=== PATIENT | male | born 1955 | race Caucasian/White ===

== ENCOUNTER 2018-10-27 14:47 | Inpatient (IN) | payer OTHER ==
[~2018-10-27] VITALS: Ht 167.6 cm; Wt 63.5 kg
[2018-10-27 14:57] VITALS: Ht 167.6 cm; Wt 63.5 kg
--- NOTE | 2018-10-27 15:09 | NUR ---
RECEIVED PT FROM [facility]. PT PLACED TO BED 3 - PER [facility] PT VERBALIZED TO RICHARD IN [place] THAT HE WANTS TO JUMP OFF A BRIDGE AND NO LONGER WANTS TO LIVE. PT BULGARIAN IS LIMITED. WHEN I ASKED HIM IF HE WANTS TO KILL HIMSELF, PT REPLIED IN LIMITED BULGARIAN STATING "I HAVE TWO SON AND A DAUGHTER. THEY DON'T WANT TO SEE ME." MSE BEING COMPLETED BY DR PEARSON AT THIS TIME WHO IS AWARE OF PT'S SUICIDAL THOUGHTS THAT RICHARD IS AWARE OF
--- NOTE | 2018-10-27 15:09 | NUR ---
DR PEARSON AT BEDSIDE
--- NOTE | 2018-10-27 15:12 | NUR ---
ALL PERSONAL BELONGINGS REMOVED FROM PT AND PLACED TO RADIO ROOM
--- NOTE | 2018-10-27 15:25 | NUR ---
PT ATTEMPTING TO URINATE TO URINAL AT THIS TIME
[2018-10-27 15:32] LABS: BASOPHIL % 0.3 % (0-2); PLATELET COUNT 201 x10^3mcL (130-400); RED CELL DISTRIBUTION WIDTH 13.8 % (11.5-14.5)
[2018-10-27 15:44] LABS: ALKALINE PHOSPHATASE 184 U/L (46-116); ALT/SGPT 35 U/L (16-63); AST/SGOT 9 U/L (15-37); BILIRUBIN TOTAL 0.6 mg/dL (0.20-1.00); CALCIUM 8.4 mg/dL (8.5-10.1); CARBON DIOXIDE 25.8 mmol/L (21-32); CHLORIDE SERUM 97 mmol/L (98-107); CREATININE SERUM 0.8 mg/dL (0.7-1.3); GFR1 > 60 mL/min; SODIUM SERUM 132 mmol/L (136-145); TOTAL PROTEIN, SERUM 6.2 g/dL (6.4-8.2)
[2018-10-27 15:45] LABS: ALBUMIN 2.6 g/dL (3.4-5.0)
[2018-10-27 15:46] LABS: GLUCOSE SERUM 599 mg/dL (74-106)
--- NOTE | 2018-10-27 16:12 | NUR ---
REPORT GIVEN TO ISAEL ARIAS
--- NOTE | 2018-10-27 16:19 | NUR ---
PT LAYING ON GURNEY IN POSITION OF COMFORT. PT PROVIDED URINE AND REQUESTED NEW URINAL. PT STS THAT HE IS HUNGRY, HE HASN'T EATEN IN A WHILE. FOOD TRAY OREDERED FOR PT. NO S/S OF DISTRESS. RESP E/U. COMFORT MEASURES IMPLEMENTED. WILL CONTINUE TO MONITOR.
--- NOTE | 2018-10-27 16:19 | NUR ---
REPORT FROM HUGO GROVES TO ASSUME CARE
[2018-10-27 16:22] LABS: microscopic required? NO
--- NOTE | 2018-10-27 16:24 | NUR ---
SPOKE W/DOCTOR PEARSON ABOUT PT BLOOD SUGAR. PER DR. PEARSON RECHECK BLOOD SUGAR 1 HOUR AFTER INSULIN. THEN HE WILL REEVALUATE.
--- NOTE | 2018-10-27 17:38 | NUR ---
PT LAYING ON GURNEY IN POSITION OF COMFORT W/BLANKET OVER HEAD. NO S/S OF DISTRESS. RESP E/U. PT IN SIGHT OF NURSES STATION. WILL CONTINUE TO MONITOR.
--- NOTE | 2018-10-27 18:03 | NUR ---
SPOKE W/TELE PSYCH MD
[2018-10-27 18:11] LABS: UA SPECIFIC GRAVITY <=1.005 (1.005-1.035); urine erythrocyte NEGATIVE (NEGATIVE)
--- NOTE | 2018-10-27 18:32 | NUR ---
PER DR JARAMILLO PLACE PT ON HOLD.
--- NOTE | 2018-10-27 19:25 | NUR ---
REQUEST FROM DR PEARSON TO EVALUATE PT FOR 5150 HOLD. PT DROWSY, BUT ROUSES WITH GENTLE TOUCH. PT ADMITS TO BEING DEPRESSED, WANTING TO HURT HIMSELF, AND THINKING OF JUMPING OFF A BRIDGE. THE PATIENT WILL NOT VERBALIZE A CONTRACT FOR SAFETY AT THIS TIME. REVIEW OF TELEPSYCH CONSULT SHOWS ADDITIONAL FACTORS SUPPORTIVE OF 5150 PLACEMENT. HOLD WRITTEN. PT ADVISED. PT VERBALIZED UNDERSTANDING OF ADVISEMENT. TORRES KIRKLAND AND DR PEARSON INFORMED. HOLD PLACED ON CHART.
[2018-10-27 19:56] LABS: AMPHETAMINE QUAL UR POSITIVE (See below)
--- NOTE | 2018-10-27 20:38 | NUR ---
PT LAYING ON GURNEY IN POSITION OF COMFORT. EASILY ARROUSEABLE. NO S/S OF DISTRESS. PT MOVING FROM SIDE TO SIDE PERIODICALLY. RESP E/U. WILL CONTINUE TO MONITOR.
--- NOTE | 2018-10-27 21:58 | NUR ---
PT LAYING ON GURNEY IN POSITION OF COMFORT. PT MOVED FROM SIDE TO BACK W/LEGS UP. NO S/S OF DISTRESS. RESP E/U. PT IN VIEW OF NURSES STATION. WILL CONTINUE TO MONITOR.
--- NOTE | 2018-10-27 22:42 | NUR ---
PT LAYING ON GURNEY IN POSITION OF COMFORT. NO S/S OF DISTRESS. RESP E/U. PER DR MIRNA LOPEZ TO REMOVE FROM VITAL SIGN MACHINE, PT HAS BEEN MEDICALLY CLEARED. PT IN SIGHT OF NURSES STATION. WILL CONTINUE TO MONITOR.
--- NOTE | 2018-10-28 01:39 | NUR ---
PT AMBULATED TO RESTROOM W/STEADY GAIT ACCOMPANIED BY NURSE. PT REQUESTED APPLE JUICE AND ORANGE JUICE. PT IS SPEAKING IN COMPLETE SENTENCES. PT IN VIEW OF NURSES STATION.
--- NOTE | 2018-10-28 02:39 | NUR ---
PT LAYING ON GURNEY IN POSITION OF COMFORT. NO S/S OF DISTRESS. RESP E/U. IN SIGHT OF NURSES STATION. WILL CONTINUE TO MONITOR.
--- NOTE | 2018-10-28 03:30 | NUR ---
PT SLEEPING ON GURNEY EASILY ARROUSABLE. NO S/S OF DISTRESS. RESP E/U. COMFORT MEASURES IMPLEMENTED. WILL CONTINUE TO MONITOR.
--- NOTE | 2018-10-28 04:29 | NUR ---
PT SLEEPING ON GURNEY IN POSITION OF COMFORT. COVERED W/BLANKET. NO S/S OF DISTRESS. PT CHANGES POSITIONS FREQUENTLY. WILL CONTINUE TO MONITOR.
--- NOTE | 2018-10-28 05:52 | NUR ---
PT LAYING ON GURNEY IN POSITION OF COMFORT. HELPED PT MOVE UP IN BED. PT ALLOWED FOR ACUCHECK. NO S/S OF DISTRESS. RESP E/U. WILL CONTINUE TO MONITOR.
--- NOTE | 2018-10-28 06:17 | NUR ---
PT SLEEPING ON GURNEY. NO S/S OF DISTRESS. RESP E/U. PT EASILY ARROUSABLE. WILL CONTINUE TO MONITOR.
--- NOTE | 2018-10-28 08:00 | NUR ---
SLEEPING EASILY AWAKABLE, COOPERATIVE,DENIES PAIN, SKIN WARM AND DRY TO TOUCH, RESP.EASY BREATH SOUNDS CLEAR, ABDOMEN SOFT ACTIVE BOWEL SOUNDS,DENIES PAIN, WANTS TO SLEEP,
--- NOTE | 2018-10-28 08:56 | NUR ---
HAD HIS BREAKFAST AND TOLERATED,
--- NOTE | 2018-10-28 12:46 | NUR ---
Pt packet received, packet faxed to the following facilities: [facility] (unable to accept d/t insurance) [facility]: No beds per arlen [place]: No beds per Loy. Will continue to look for placement, will contact with updates.
--- NOTE | 2018-10-28 14:00 | NUR ---
SLEEPING, AROUSABLE, COOPERATIVE, NO SIGNS OF DISTRESS.
[2018-10-28] MEDS ORDERED: TAMSULOSIN HYD0.4 M1 PO (14:35)
[2018-10-28] MEDS ORDERED: METFORMIN HCL1000 MG PO (14:36)
[2018-10-28 15:17] VITALS: BP 96/63
--- NOTE | 2018-10-28 15:26 | NUR ---
RECEIVED PT FROM ER, PT ADMIT FOR 5150 UNCONTROLLED DM. PT IS VERY DROWSY, CONSTANTLY FALL INTO SLEEP DURING THE ASSESSMENT, BUT A/O X3, WHILE AWAKE, LUNG SOUND CLEAR BILATERAL,NO COUGH, NO SOB. PT DENY ANY CHEST PAIN OR DISCOMFORT, BOWEL SOUND PRESENT ALL 4 QUADRANTS, NO DISTENTION, NO TENDER. PEDAL PULSE PRESENT BOTH FEET, +1 EDEMA BLE. THERE ARE DISCOLORATION AT BLE. IV AT LEFT FA, NO LEAKING, NO INFILTRATION. ALL ADLS ASSIST, ALL NEED MET CALL LIGHT IN REACH, WILL CONTINUE TO MONITOR.
--- NOTE | 2018-10-28 15:30 | NUR ---
RECEIVED PT FROM ER, PT ADMIT FOR 5150 UNCONTROLLED DM. PT IS VERY DROWSY, CONSTANTLY FALL INTO SLEEP DURING THE ASSESSMENT, BUT A/O X3, WHILE AWAKE, LUNG SOUND CLEAR BILATERAL,NO COUGH, NO SOB. PT DENY ANY CHEST PAIN OR DISCOMFORT, BOWEL SOUND PRESENT ALL 4 QUADRANTS, NO DISTENTION, NO TENDER. PEDAL PULSE PRESENT BOTH FEET, +1 EDEMA BLE. THERE ARE DISCOLORATION AT BLE. PT APPEAR DEPRESSED. AND VERBAL STATE HE DOESN'T WANT TO LIVE ANY MORE, HE HAS PLAN TO WALK INTO [facility] [address] TO END HIS LIFE. SITTER AT BEDSIDE, IV AT LEFT FA, NO LEAKING, NO INFILTRATION. ALL ADLS ASSIST, ALL NEED MET CALL LIGHT IN REACH, WILL CONTINUE TO MONITOR.
--- NOTE | 2018-10-28 17:03 | NUR ---
PT REMAINS ASLEEP BUT AROUSABLE. NO ACUTE DISTRESS NOTED. IV INTACT AND PATENT. CALL LIGHT WITHIN REACH. WILL CONTINUE TO MONITOR
--- NOTE | 2018-10-28 18:28 | NUR ---
PT REMAINS ASLEEP BUT AROUSABLE. NO ACUTE DISTRESS NOTED. IV INTACT AND PATENT. CALL LIGHT WITHIN REACH. WILL BE ENDORSED.
[2018-10-28 19:19] VITALS: BP 96/63
--- NOTE | 2018-10-28 19:20 | NUR ---
RECIEVED PT IN BED WITH NO ACUTE DISTRESS NOTED AT THIS TIME, ASSESSMENT PERFORMED AT THIS TIME, PT IS A/OX 4 NO COMPLAINTS OF POSADA OR DIZZINESS, PT DENEIS PAIN OR SOB, SITTER AT BEDSIDE, SAFETY PRECAUTIONS IN PLACE, WILL CONTINUE TO MONITOR.
[2018-10-28 20:45] VITALS: BP 98/65
--- NOTE | 2018-10-28 22:45 | NUR ---
PT RESTING IN BED WITH NO DISTRESS NOTED AT THIS TIME, ALL NEEDS ATTENDED TO SITTER AT BEDSIDE, SAFETY PRECAUTIONS IN PLACE, WILL CONTINUE TO MONITOR
--- NOTE | 2018-10-29 01:35 | NUR ---
PT SLEEPING IN BED WITH NO ACUTE DISTRESS NOTED AT THIS TIME, RESPIRATIONS EVEN AND UNLABORED, SITTER AT BEDSIDE, SAFETY PRECAUTIONS IN PLACE, WILL CONTINUE TO MONITOR
--- NOTE | 2018-10-29 05:18 | NUR ---
PT SLEPT THROUGH THE NIGHT WITH NO ACUTE DISTRESS, PT DENIED SOB OR PAIN, PT DENIED SI THROUGH THE SHIFT, SITTER REMAINED AT BEDSIDE THROUGH THE SHIFT, SAFETY PRECAUTIONS WERE MAINTAINED THROUGH THE NIGHT, WILL CONTINUE TO MONITOR AND ENDORSE CARE TO ONCOMING RN
[2018-10-29 05:58] VITALS: BP 97/66
[2018-10-29 07:03] LABS: BASOPHIL % 0.3 % (0-2); PLATELET COUNT 217 x10^3mcL (130-400); RED CELL DISTRIBUTION WIDTH 13.6 % (11.5-14.5)
[2018-10-29 07:17] LABS: CALCIUM 7.9 mg/dL (8.5-10.1); CARBON DIOXIDE 25.3 mmol/L (21-32); CHLORIDE SERUM 106 mmol/L (98-107); CREATININE SERUM 0.5 mg/dL (0.7-1.3); GFR1 > 60 mL/min; GLUCOSE SERUM 201 mg/dL (74-106); MAGNESIUM 1.6 mg/dL (1.8-2.4); POTASSIUM SERUM 3.7 mmol/L (3.5-5.1); SODIUM SERUM 138 mmol/L (136-145)
--- NOTE | 2018-10-29 07:20 | NUR ---
RECEIVED IN BED, AXOX4, DROWSY, FRENCH, ON 515, SITTER 1:1, FROM [facility], VERBAL, CALM AND COPPERATIVE, PERRLA, NO REDNESS/DRAINAGE, NO FACIAL DROOP/SLURRED SPEECH, MISSING TEETH TO BOTH JAWS, REPORTED NO PAIN/POSADA/PRESSURE/CP, REPORTED NO N/V/D AT THIS TIME, ON RA, IN NO ACUTE RESP DISTRESS, CHEST RISE SYMMETRICALLY, MED-SURG, AMB WITH ASSIST, GEN. WEAKNESS, ABLE TO MOVE ALL EXTREMITIES, ABD FLAT AND NON-TENDER TO TOUCH, LAST BM ON 10/28, SOFT, CONTINENT, SKIN D/W/I, IV TO LAC PATENT AND INFILTRATION WELL, PALP PULSES, CAP REFIL < 2 SECS, ALL NEEDS MET, SAFETY PRECAUTION FOLLOWED, CONTINUE TO MONITOR
[2018-10-29 08:24] VITALS: BP 97/61
--- NOTE | 2018-10-29 09:58 | NUR ---
PT IN BED, IN NO ACUTE DISTRESS, AM MED GIVEN PER MD ORDER VIA EMAR, TAKEN WELL, NO ASE NOTED AT THIS TIME, ALL NEEDS MET, SITTER 1:1 AT BEDSIDE, SAFETY PROTOCOL FOLLOWED, CONTINUE TO MONITOR
--- NOTE | 2018-10-29 14:01 | NUR ---
PT SLEEPING IN BED, IN NO ACUTE RESP DISTRESS, SITTER 1:1 AT BEDSIDE, ALL NEEDS MET AT THIS TIME, SAFETY PROTOCOL FOLLOWED, CONTINUE TO MONITOR
--- NOTE | 2018-10-29 17:03 | NUR ---
PT IN BED, IN NO ACUTE RSP DISTRESS, V/S NOTED BP-82/51 (61), HR-69, RR-16, O2-96% AT RA, 0/10, 98.0, PT REFUSED DIZZINESS/POSADA/N/V, DENIED DISCOMFORT AND OTHER CONCERNS, BOTTOM LINER UTE MORALES PAGED AND MADE AWARE, NEW ORDER BOLUS 1,000ML NS 0.9%, PT AWARE, CHARGE NURSE JONATHAN AWARE, AWAITING FOR R VERIFICATION FROM PHARMACY, SAFETY MONITOR, CONTINUE TO MONITOR
--- NOTE | 2018-10-29 17:09 | NUR ---
PHARMACIST CALLED AND MADE AWARE OF NEW BOLUS ORDER
--- NOTE | 2018-10-29 17:10 | NUR ---
PT LUNGS CTA, CHEST RISE SYMMETRICALLY, DENIED DISCOMFORT, IN NO ACUTE RESP DISTRESS
--- NOTE | 2018-10-29 17:13 | NUR ---
IV BOLUS 1,000ML NS 0.9% GIVEN PER DRAFTSPERSON UTE MORALES ORDER, NO ASE AT THIS TIME, CONTINUE TO MONITOR
--- NOTE | 2018-10-29 17:54 | NUR ---
V/S NOTED 96/69 (78), HR-79, LUNGS CTA, PT IN NO ACUTE RESP DISTRESS, CONTINUE TO MONITOR
--- NOTE | 2018-10-29 18:09 | NUR ---
PT RESTING IN BED, IN NO ACUTE RESP DISTRESS, VERBAL, ON 5150 HOLD D/T SI, CALM AND COOPERATIVE, RESP EVEN AND NON-LABORED, CHEST RISE SYMMETRICALLY, ABD FLAT AND NON-TENDER TO TOUCH, ABLE TO MOVE ALL EXTREMITIES, ASSIST TO BRP, BS ACTIVE X 4, DENIED PAIN/CP/PRESURE, DENIED N/V/D/DIZZINESS, SKIN D/W/I, PALP PULSES, CAP REFILL < 2 SECS, ALL NEEDS MET AT THIS TIME, SAFETY PROTOCOL FOLLOWED, WILL ENDORSE TO ONCOMING RN
[2018-10-29 18:15] VITALS: BP 96/69
--- NOTE | 2018-10-29 19:30 | NUR ---
RECEIVED PT LAYING IN BED, NO ACUTE DISTRESS OBSERVED, DENIES PAIN OR DISCOMFORT. PT ON 5150 HOLD AT THIS TIME, PENDING PSYCH FACILITY PLACEMENT. DENIES SI OR HI AT THIS TIME. SITTER AT BEDSIDE TO ENSURE SAFETY, PT APPEARS SAD AND SOMNELENT. AA/OX4, ABLE TO MAKE NEEDS KNOWN, SPEECH SLOW AND APPROPRIATE, AROUSABLE TO VERBAL STIMULI. MED-SURG, NO TELE, NO CP. PULSES PRESENT AND EQUAL THROUGHOUT, NO EDEMA, NO SCD TO ENSURE SAFETY. BREATHING ON RA, EVEN AND UNLABORED, NO SOB OR DYSPNEA OBSERVED, O2 SAT 95% ABD ROUND AND SOFT WITH ACTIVE BOWEL SOUNDS, NO N/V/D. FREELY VOIDS URINE. GENERALIZED WEAKNESS, AMBULATORY WITH ASSIST, ABLE TO TURN AND REPOSITION SELF IN BED. DARK DISCOLORATION TO BLE, GABBI. IV SITE X2 TO LFA IN PLACE, DRY, PATENT, INTACT, ONE INFUSING IVF WELL. THE OTHER S/L, NO PAIN, REDNESS OR SWELLING WHEN FLUSHED WITH NS. COMFORT AND SAFETY MEASURES IN PLACE. ALL NEEDS ASSESSED AND ATTENDED TO. CALL LIGHT WITHIN REACH. WILL CONTINUE TO MONITOR
[2018-10-29 21:10] VITALS: BP 97/64
--- NOTE | 2018-10-30 02:49 | NUR ---
PT LAYING IN BED, BREATHING EVEN AND UNLABORED, NO ACUTE DISTRESS OBSERVED. CALL LIGHT WITHIN REACH. SITTER AT BEDSIDE. WILL CONTINUE TO MONITOR
[2018-10-30 05:30] VITALS: BP 98/64
--- NOTE | 2018-10-30 06:14 | NUR ---
NO SIGNIFICANT CHANGES TO REPORT, PT COMPLIED WITH NURSING CARE THROUGHOUT THE SHIFT WITH NO ACUTE EVENTS OVERNIGHT. NO ACUTE DISTRESS OBSERVED AT THIS TIME, BREATHING EVEN AND UNLABORED, AROUSABLE TO VERBAL STIMULI. COMFORT AND SAFETY MEASURES MAINTAINED. SITTER REMAINS AT BEDSIDE TO ENSURE SAFETY. ALL NEEDS ASSESSED AND ATTENDED TO. CALL LIGHT WITHIN REACH. WILL CONTINUE TO MONITOR AND ENDORSE CARE TO DAY SHIFT NURSE
[2018-10-30 07:05] LABS: BASOPHIL % 0.3 % (0-2); PLATELET COUNT 178 x10^3mcL (130-400); RED CELL DISTRIBUTION WIDTH 13.2 % (11.5-14.5)
[2018-10-30 07:08] LABS: CARBON DIOXIDE 24.9 mmol/L (21-32); CHLORIDE SERUM 107 mmol/L (98-107); CREATININE SERUM 0.5 mg/dL (0.7-1.3); GFR1 > 60 mL/min; GLUCOSE SERUM 142 mg/dL (74-106); POTASSIUM SERUM 3.9 mmol/L (3.5-5.1); SODIUM SERUM 140 mmol/L (136-145)
[2018-10-30 09:08] VITALS: BP 97/64
--- NOTE | 2018-10-30 09:16 | NUR ---
RECEIVED PT IN BED, AXOX4, SLEEPY, ZAMBIAN, ON 515, SITTER 1:1, FROM [facility], VERBAL, CALM AND COPPERATIVE W/ POC AT THIS TIME , PERRLA, NO REDNESS/DRAINAGE, NO FACIAL DROOP/SLURRED SPEECH, MISSING TEETH TO BOTH JAWS, REPORTED NO PAIN/POSADA/PRESSURE/CP, REPORTED NO N/V/D AT THIS TIME, ON RA, IN NO ACUTE RESP DISTRESS, LUNGS CTA, CHEST RISE SYMMETRICALLY, MED-SURG, AMB WITH ASSIST, GEN. WEAKNESS, ABLE TO MOVE ALL EXTREMITIES, ABD FLAT AND NON-TENDER TO TOUCH, LAST BM ON 10/30 AM, BS ACTIVE X 4, ABD SOFT, CONTINENT, SKIN D/W/I, IV TO LAC PATENT AND INFILTRATION WELL, PALP PULSES, CAP REFIL < 2 SECS, ALL NEEDS MET, CALL LIGTH IN REACH, RAILS X 2, BED AT LOW POSITION, CONTINUE TO MONITOR
--- NOTE | 2018-10-30 09:41 | NUR ---
PT IN BED, IN NO ACUTE RESP DISTRESS, AM MEDS GIVEN PER MD ORDER VIA EMAR, TAKEN WELL, NO ASE NOTED AT THIS TIME, AL NEEDS MET, SAFETY PROTOCOL FOLLOWED, CONTINUE TO MONITOR
--- NOTE | 2018-10-30 10:25 | NUR ---
SEEN BY MD ROMERO, NEW ORDER TO D/C 5150 HOLD AND SITTER 1:1, MOVED PT TO 250A, PT SLEEPING IN BED, IN NO APPARENT RESP DISTRESS, SAFETY FOLLOWED, CONTINUE TO MONITOR
--- NOTE | 2018-10-30 14:02 | NUR ---
PT SLEEPING IN BED, IN NO ACUTE RESP DISTRESS, RESP EVEN AND NON-LABORED, ALL NEEDED ADDRESSED, SAFETY PRECAUTION FOLLOWED, CONTINUE TO MONITOR
[2018-10-30 17:34] VITALS: BP 151/79
[2018-10-30 17:39] VITALS: BP 109/72
--- NOTE | 2018-10-30 17:58 | NUR ---
PT SLEEPING IN BED, IN NO ACUTE RESP DISTRESS, CALM AND COOPERATIVE, RESP EVEN AND NON-LABORED, CHEST RISE SYMMETRICALLY, ABD FLAT AND NON-TENDER TO TOUCH, ABLE TO MOVE ALL EXTREMITIES, ASSIST TO BRP, BS ACTIVE X 4, DENIED PAIN/CP/PRESURE, DENIED N/V/D/DIZZINESS, SKIN D/W/I, PALP PULSES, CAP REFILL < 2 SECS, ALL NEEDS ADDRESSED AT THIS TIME, CALL LIGHT IN REACH, BED AT LOW POSITION, RAILS X 2, WILL ENDORSE TO ONCOMING RN
--- NOTE | 2018-10-30 19:30 | NUR ---
RECIEVED PT FROM DAY NURSE. PT RESTING IN BED COMFORTABLY. DENIES PAIN AT THIS TIME. AO X4, CALM AND COOPERATIVE. PALPABLE PULSES, NO EDEMA NOTED. BREATHING EVEN AND UNLABORED ON RA. ACTIVE BOWEL SOUNDS X4, NO TENDERNESS TO PALPATION. DARK DISCOLORATION TO BLE. LFA IV INTACT AND INFUSING. CALL LIGHT WITHIN REACH, BED AT LOWEST POSITION. WILL CONTINUE TO MONITOR.
[2018-10-30 20:45] VITALS: BP 96/54
--- NOTE | 2018-10-30 21:20 | NUR ---
SPOKE TO DR. GALLAGHER. MADE AWARE OF MG 1.6 WITHOUT COVERAGE.
--- NOTE | 2018-10-31 | NUR ---
PT RESTING IN BED COMFORTABLY WITH EYES CLOSED. NO S/S OF PAIN AT THIS TIME. BREATHING EVEN AND UNLABORED. BED AT LOWEST POSITION. CALL LIGHT WITHIN REACH. WILL CONTINUE TO MONITOR.
[2018-10-31 05:13] VITALS: BP 111/68
--- NOTE | 2018-10-31 05:34 | NUR ---
I HAVE REVIEWED THE DATA COLLECTION BY HUGO WALSH: OTIS NORRIS ENTERED ON 10/30-10/31 I CONCUR WITH THE DATA AND ANY EXCEPTIONS OR COMMENTS ARE LISTED BELOW:
--- NOTE | 2018-10-31 06:04 | NUR ---
No vacancy found at any of the designated facilities, will endorsed to AM shift to continue to look for placment.
--- NOTE | 2018-10-31 06:50 | NUR ---
PT RESTING IN BED COMFORTABLY. NO S/S OF PAIN AT THIS TIME. BREATHING EVEN AND UNLABORED. NO SIGNIFICANT CHANGES THIS SHIFT. BED AT LOWEST POSITION. CALL LIGHT WITHIN REACH. WILL ENDORE TO DAY NURSE.
--- NOTE | 2018-10-31 08:00 | NUR ---
HANDOFF REPORT RECEIVED. PATIENT ASLEEP WITH RR 16/MIN. NS AT 100CC/HR INFUSING PERIPHERALLY VIA PUMP. CALL TROY WITHIN REACH.
[2018-10-31 09:20] VITALS: BP 102/69
[2018-10-31] MEDS ORDERED: RIS0.25 PO (10:42)
[2018-10-31] MEDS ORDERED: EFF37 PO (10:43)
[2018-10-31] MEDS ORDERED: PRI20 PO (10:45)
[2018-10-31] MEDS ORDERED: METFORMIN HCL1000 MG PO (10:46)
[2018-10-31] MEDS ORDERED: ACT15 PO (10:47)
--- NOTE | 2018-10-31 12:13 | NUR ---
DENIES ANY DISCOMFORT. BS 227 AND COVERED WITH INSULIN ORDERED.
[2018-10-31 13:23] VITALS: BP 102/69
--- NOTE | 2018-10-31 14:16 | NUR ---
COMPLAINED OF CONSTIPATION. MOM PO GIVEN.
--- NOTE | 2018-10-31 17:26 | NUR ---
IN BED TAKING A NAP. NOT IN ANY DISTRESS. CALL TROY WITHIN REACH.
[2018-10-31 17:42] VITALS: BP 101/60
--- NOTE | 2018-10-31 19:15 | NUR ---
HANDOFF REPORT GIVEN TO HUGO NOYOLA.
--- NOTE | 2018-10-31 20:00 | NUR ---
RECEIVED PT IN BED, ALERT AND ORIENTED. CALM AND FOLLOWS COMMANDS. DENIES HEADACHE/DIZZINESS . RESP. EVEN AND UNLABORED. ON ROOM AIR, NO ACUTE DISTRESS NOTED. AFEBRILE AND VITAL SIGNS STABLE. IVF, NS AT 100ML/HR, INTACT AND INFUSING VIA LFA, SITE CLEAR. VOIDING FREELY. CALL LIGHT WITHIN REACH. WILL CONTINUE TO MONITOR.
[2018-10-31 20:42] VITALS: BP 93/69
--- NOTE | 2018-10-31 22:26 | NUR ---
DUE MEDS GIVEN ORDERED, ANNA. MALINA. BS SHOWS 108 . CALL LIGHT WITHIN REACH. WILL CONTINUE TO MONITOR.
--- NOTE | 2018-11-01 02:12 | NUR ---
EYES CLOSED, RESTING QUIETLY, APPEARS ASLEEP, EASILY AROUSABLE. RESP. EVEN AND UNLABORED. NO ACOMPLAINTS NOTED. IVF INTACT AND INFUSING WELL. WILL CONTINUE TO MONITOR.
[2018-11-01 05:38] VITALS: BP 103/72
--- NOTE | 2018-11-01 06:41 | NUR ---
SLEPT WELL. NO SIGNIFICANT CHANGE NOTED IN PT,S CONDITION. AFEBRILE AND VITAL SIGNS STABLE. RESP. EVEN AND UNLABORED. NO ACUTE DISTRESS NOTED. DUE MEDS GIVEN ORDERED, ANNA. WELL. KEPT COMFORTABLE. WILL ENDORSE TO INCOMING NURSE.
--- NOTE | 2018-11-01 07:40 | NUR ---
RECEIVED PT IN BED A/A/OX3 DENIES POSADA. RESP EVEN AND UNLABORED WITH CLEAR BS BILAT. DENIES ANY SOB/CP/PRESSURE. NO EDEMA NOTED. ABD SOFT, NONTENDER WITH ACTIVE BS X4. VOIDING FREELY. AMBULATORY WITH SUPERVISION. HX PSYCHOSIS AND DEPRESSION. CLEARED BY PSYCH. CALL JOANNA MARTINEZ REACH NEEDS ATTENDED TO.
[2018-11-01 09:54] VITALS: BP 89/56
--- NOTE | 2018-11-01 11:30 | NUR ---
PT RESTING DENIES ANY DISCOMFORT AT THIS TIME.
--- NOTE | 2018-11-01 16:19 | NUR ---
MADE AWARE BY USER ACCEPTANCE TESTER PT IS APPEALING D/C WITH MEDICARE, D/C ON HOLD.
[2018-11-01 16:21] VITALS: BP 88/55
--- NOTE | 2018-11-01 18:50 | NUR ---
PT RESTING DENIES ANY DISCOMFORT. CALL LIGHT IN REACH NEEDS ATTENDED TO.
--- NOTE | 2018-11-01 19:05 | NUR ---
RECECIVED REPORT FROM DAY SHIFT RN, ALL QUESTION AND CONCERNS ADDRESSED. PT IN ROOM 250 BED A RESTING IN SEMI FOWLERS POSITION, PT IS A/O X3, EYES OPEN SPONTANEOUSLY AND PUPILS REACT BRISK TO LIGHT. CHEST RISE AND FALL EQUAL AND UNLABORED. LS CLEAR BILATERAL AND DIMINISHED BBA. PT SHOW NO SIGN OR COMPLAINTS OF ACUTE DISTRESS. VS STABLE. BED LET IN THE LOWEST POSITION AND CALL LIGHT LEFT WITHIN REACH.
--- NOTE | 2018-11-01 20:20 | NUR ---
RT AT BEDSIDE FOR BREATHING TX
[2018-11-01 21:04] VITALS: BP 97/59
--- NOTE | 2018-11-02 03:20 | NUR ---
ASSUMED CARE OF PT. IN NO ACUTE DISTRESS. BED IN LOWEST POSITION. CALL LIGHT WITHIN REACH. WILL CONTINUE TO MONITOR.
--- NOTE | 2018-11-02 05:00 | NUR ---
PT REMOVED IV, PER PT IT WAS AN ACCIDENT, TIP INTACT. WILL PLACE NEW IV.
[2018-11-02 05:47] VITALS: BP 90/53
--- NOTE | 2018-11-02 07:05 | NUR ---
RECEIVED PT FROM YARELI RN, PT SLEEPING IN BED, IN NO ACUTE DISTRESS
--- NOTE | 2018-11-02 07:10 | NUR ---
RECEIVED PT IN BED, AXOX4, DROWSY, GABONESE, VERBAL, CALM AND COOPPERATIVE, PERRLA, NO REDNESS/DRAINAGE, NO FACIAL DROOP/SLURRED SPEECH, MISSING TEETH TO BOTH JAWS, REPORTED NO PAIN/POSADA/PRESSURE/CP, REPORTED NO N/V/D AT THIS TIME, ON RA, IN NO ACUTE RESP DISTRESS, LUNGS CTA, CHEST RISE SYMMETRICALLY, MED-SURG, AMB WITH ASSIST, GEN. WEAKNESS, ABLE TO MOVE ALL EXTREMITIES, ABD FLAT AND NON-TENDER TO TOUCH, LAST BM ON 11/01/18, BS ACTIVE X 4, ABD SOFT, CONTINENT, SKIN D/W/I, IV TO LAC 22G PATENT AND INFILTRATION WELL W/ NS 0.9% AT 100ML/HR, PALP PULSES, CAP REFIL < 2 SECS, ALL NEEDS MET, CALL LIGTH IN REACH, RAILS X 2, BED AT LOW POSITION, CONTINUE TO MONITOR
[2018-11-02 09:33] VITALS: BP 159/68
--- NOTE | 2018-11-02 12:38 | NUR ---
PT RESTING IN BED W/ EYES CLOSED, DENIED DISCOMFORT/PAIN, ASSISTED TO BATHROOM, VOIDED X 1, ASSISTED BACK TO BED, SAFETY PROTOCOL FOLLOWED, CONTINUE TO MONITOR
[2018-11-02 13:01] VITALS: BP 159/68
--- NOTE | 2018-11-02 15:26 | NUR ---
PT SLEEPING IN BED, IN NO ACUTE DISTRESS, IV PATENT AND INFUSING WELL, ALL NEEDS MET AT THIS TIME, SAFETY PRECAUTION MET, CONTINUE TO MONITOR
--- NOTE | 2018-11-02 16:16 | NUR ---
PT LYING FLAT IN BED, IN NO ACUTE RESP DISTRESS, PT REPORTED HEARTBURN FEELING AND ASKED FOR PHARMACOLOGICAL INTERVENTION, PT REFUSED TO SIT UP IN BED OR REPOSITION FOR NON-PHARMACOLOGIAL INTERVENTION, BLENDING COORDINATOR ASHLEY PAGED AND AWAITING FOR CALLED BACK, PT AWARE, CHARGE NURSE CANDELARIA AWARE, SAFETY PRECAUTION FOLLOW, CONTINUE TO MONITOR
[2018-11-02 17:41] VITALS: BP 95/58
--- NOTE | 2018-11-02 17:58 | NUR ---
SEEN BY DIE HARDENER BALBIR LANDERS NOTED, AWAITING FOR VERIFICATION FROM PHARMACIST, PT MADE AWARE, CONTINUE TO MONITOR
--- NOTE | 2018-11-02 18:29 | NUR ---
PT LYING IN BED, VERBAL, IN NO ACUTE RESP DISTRESS, RESP EVEN AND NON-LABORED, CHEST RISE SYMMETRICALY, ABLE TO MOVE ALL EXTREMITIES, ABD FLAT AND NON-TENDER TO TOUCH, IV LOCK TO LFA PATENT AND NO INFECTION S/S NOTED, ALL NEEDS MET AT THIS TIME, SFETY PROTOCOL FOLLOWED, WILL ENDORSE TO CONCOMING RN
--- NOTE | 2018-11-02 20:00 | NUR ---
PT A/A/O X4. DENIES DIZZINESS AND HEADACHE. BREATH SOUNDS DIMINISHED ROCKY BASES. BREATHING EVEN AND UNLABORED ON ROOM AIR. DENIES CHEST PAIN AND PRESSURE. BOWEL SOUNDS ACTIVE. NO C/O N/V AND ABDOMINAL PAIN. IV SALINE LOCK INTACT ON THE LEFT FOREARM. MADE PT COMFORTABLE. PLACED CALL LIGHT WITH IN REACH. WILL CONTINUE TO MONITOR.
[2018-11-02 20:07] VITALS: BP 96/59
--- NOTE | 2018-11-03 01:10 | NUR ---
PT RESTING WITH EYES CLOSED. NO DISTRESS AND DISCOMFORT NOTED. WILL CONTINUE TO MONITOR.
[2018-11-03 05:36] VITALS: BP 105/63
--- NOTE | 2018-11-03 06:18 | NUR ---
PT RESTING WITH EYES CLOSED. EASILY AROUSABLE WITH VERBAL STIMULI. NO SIGNIFICANT CHANGES NOTED. MADE PT COMFORTABLE. WILL ENDORSE TO THE AM NURSE ACCORDINGLY.
--- NOTE | 2018-11-03 07:05 | NUR ---
RECEIVED REPORT FROM NATHANIEL RN, PT IN NO ACUTE RESP DISTRESS, PT REPORTED WILL LEAVE AMA OR HURT HIMSELF TODAY IF STAFF TRIED TO KEEP PT IN HOSPITAL PER PT WANTED TO ATTEND FAMILY ACTIVITY, CHARGE NURSE CANDELARIA ANSARI, CONTINUE TO MONITOR
--- NOTE | 2018-11-03 07:15 | NUR ---
RECEIVED REPORT FROM DIXON RN, PT IN NO ACUTE DISTRESS, SLEEPING IN BED, CONTINUE TO RESUME CARE
--- NOTE | 2018-11-03 07:15 | NUR ---
CALLED PT'S SISTER TO ASK ABOUT FAMILY ACTIVITY THAT PT WANTED TO ATTEND, PER SISTER, ACTIVITY NOT FOR TODAY BUT FOR TOMORROW, SISTER TRANSFERED TO TALK TO PT IN ROOM, PT AWARE AND AGREED TO STAY FOR [place] TODAY IN HOSPITAL WITH WOUND CARE TEACHING PREPARING PRIOR D/C HOME, PT STATED "I WILL BLOW THE WHOLE FAMILY UP IF THE ACTIVITY HAPPEN TODAY, NOT TOMORROW." CHARGE NURSE CANDELARIA MADE AWARE. DENTAL ASSOCIATE ANDREINA GILEBRT MADE AWARE. CONTINUE TO MONITOR
--- NOTE | 2018-11-03 07:20 | NUR ---
RECEIVED PT IN BED, AXOX4, DANISH/MONGOLIAN, VERBAL, CALM AND COOPPERATIVE, PERRLA, NO REDNESS/DRAINAGE, NO FACIAL DROOP/SLURRED SPEECH, MISSING TEETH TO BOTH JAWS, REPORTED NO PAIN/POSADA/PRESSURE/CP, REPORTED NO N/V/D AT THIS TIME, ON RA, IN NO ACUTE RESP DISTRESS, LUNGS CTA, CHEST RISE SYMMETRICALLY, MED-SURG, AMB WITH ASSIST, GEN. WEAKNESS, ABLE TO MOVE ALL EXTREMITIES, ABD FLAT AND NON-TENDER TO TOUCH, LAST BM ON 11/03/18 AM, SOFT STOOL, BS ACTIVE X 4, ABD SOFT, CONTINENT, SKIN D/W/I, IV LOCK LAC 22G PATENT AND FLUSHING WELL, PALP PULSES, CAP REFIL < 2 SECS, ALL NEEDS MET, CALL LIGHT IN REACH, RAILS X 2, BED AT LOW POSITION, CONTINUE TO MONITOR
[2018-11-03 09:16] VITALS: BP 91/54
--- NOTE | 2018-11-03 09:48 | NUR ---
PT IN BED, AXOX4, AM MED GIVEN PER MD ARCHER VIA EMAR, TAKEN WELL, NO ASE NOTED AT THIS TIME, PT IN NO ACUTE RESP DISTRESS, SAFETY PRECAUTION FOLLOWED, ALL NEEDS ROSALBA AT THIS TIME, CONTINUE TO MONITOR
--- NOTE | 2018-11-03 13:39 | NUR ---
PT RESTING IN BED W/ EYES CLOSED, IN NO ACUTE RESP DISTRESS, SAFETY MONITOR, ALL NEEDS MET AT THIS TIME, CONTINUE TO MONITOR
[2018-11-03 17:10] VITALS: BP 94/56
--- NOTE | 2018-11-03 18:09 | NUR ---
PT LYING IN BED, VERBAL, IN NO ACUTE RESP DISTRESS, RESP EVEN AND NON-LABORED, CHEST RISE SYMMETRICALY, ABLE TO MOVE ALL EXTREMITIES, ABD FLAT AND NON-TENDER TO TOUCH, IV LOCK TO LFA PATENT AND NO INFECTION S/S NOTED, DENIED CP/PAIN/PRESSURE, DENIED N/V/D, ALL NEEDS MET AT THIS TIME, SAFETY PROTOCOL FOLLOWED, WILL ENDORSE TO CONCOMING RN
--- NOTE | 2018-11-03 20:36 | NUR ---
PT C/O GEN PAIN 09/19 PER ASSESSMENT NO DISTRESS V/S IN RANGE, DR MARIA TALKED TO THE PT, AWAITING FOR ORDERS.
--- NOTE | 2018-11-03 20:45 | NUR ---
PT MOVED TO RM 239A, PT AAO X4 VERBAL NOT IN DISTRESS DIM LUNGS SOUND AT THE BASES NO COUGHING OR CHEST CONGESTION, GEN PAIN SUBSIDING PER PT, ABD SOFT NON TENDER BS ACTIVE BS 105 NO S/SX OF HYPOGLYCEMIA, SHIFT ASSESSMENT DONE ATTENDED NEEDS, CALL LIGHT AT REACH CONT TO MONITOR.
[2018-11-03 22:18] VITALS: BP 88/56
--- NOTE | 2018-11-04 01:44 | NUR ---
VISUAL CHECKED DONE, PT ASLEEP NO S/SX OF PAIN, NO S/SX OF HYPO/HYPERGLYCEMIA, CALL LIGHT AT REACH, CONT TO MONITOR.
[2018-11-04 05:22] VITALS: BP 98/60
--- NOTE | 2018-11-04 06:32 | NUR ---
SLEPT WELL DURING THE SHIFT NO SIGNIFICANT CHANGES, BS 213 MG/DL COVERED WITH 6UNITS REG INSULIN PER SLIDING SCALE, PT DENIES PAIN, NO DISTRESS, WILL ENDORSE TO INCOMING SHIFT FOR F/U CARE.
--- NOTE | 2018-11-04 07:25 | NUR ---
RECEIVED PT FROM CHEMICAL RESEARCH TECHNICIAN. PT AWAKE, ALERT. A/OX3. PT ON ROOM AIR WITH NO RESP DISTRESS AT THIS TIME. IV ACCESS LFA C/D/I SALINE LOCKED. PERIPHERAL PULSES PALPABLE, NO EDEMA NOTED. ACTIVE BS NOTED. NO APPARENT ISSUES WITH ELIMINATION AT THIS TIME. PT REPORTS GENERALIZED PAIN THROUGHOUT BODY. WILL MEDICATE PRN. SAFETY MEASURES IN PLACE. BED LOW AND LOCKED, CALL LIGHT WITHIN REACH.
[2018-11-04 08:08] VITALS: BP 113/76
--- NOTE | 2018-11-04 10:50 | NUR ---
PT RESTING IN BED IN NO ACUTE DISTRESS. PT REQUESTING FOOD. SANDWICH GIVEN TO PATIENT.
[2018-11-04 11:36] VITALS: BP 113/76
[2018-11-04 11:42] VITALS: BP 101/59
--- NOTE | 2018-11-04 11:55 | NUR ---
DISCHARGE INSTRUCTIONS/EDUCATION PROVIDED TO PATIENT. PT PROVIDED WITH RESOURCES FOR SHELTERS, PROVIDED BUS PASSES. PT VERBALIZED UNDERSTANDING. PT TO FOLLOW UP WITH APPT PROVIDED. IV ACCESS REMOVED WITH CATHETER INTACT. NO SWELLING/BLEEDING NOTED. ALL NEEDS MET AT THIS TIME. PT CALM AND COOPERATIVE. PT TO BE TAKEN BY WHEELCHAIR FOR DISCHARGE. SAFETY MAINTAINED.
== END 2018-11-04 12:44 | disposition home or self-care (01) | DRG 885 ==
LOC: ED 14:47 → MU 10-28 14:15
PROVIDERS: Emergency Medicine; ADMIT Internal Medicine
DX: F33.3 Major depressive disorder, recurrent, severe with psychotic symptoms (principal); G93.41 Metabolic encephalopathy; E11.65 Type 2 diabetes mellitus with hyperglycemia; F15.10 Other stimulant abuse, uncomplicated; Z91.5 Personal history of self-harm; Z79.84 Long term (current) use of oral hypoglycemic drugs
CPT/HCPCS: 82962; G0378; G0480; J1815; J7030; J7050; Q0092